=== PATIENT | female | born 1985 | race Caucasian/White ===

== ENCOUNTER → 2017-12-21 16:27 | Outpatient (CLI) | payer OTHER, SELFPAY ==
[2017-12-21 19:05] LABS: Chlamydia Trachomatis by PCR Negative (Negative); Neisserai gonorrhoeae by PCR Negative (Negative); Probe Check PASS; Sample Adequacy Control PASS; Specimen Processing Control PASS
== END ==
PROVIDERS: Visit Provider Obstetrics & Gynecology
DX: Z34.81 Encounter for supervision of other normal pregnancy, first trimester (principal); Z11.3 Encounter for screening for infections with a predominantly sexual mode of transmission
CPT/HCPCS: 87491; 87591

== ENCOUNTER → 2018-01-04 16:28 | Outpatient (CLI) | payer OTHER, SELFPAY ==
[2018-01-04 17:38] LABS: Color, Urine Yellow (Yellow); Glucose, Dipstick Normal (Normal); Ketone-Dipstick 5 mg/dl (Negative); Leukocyte Esterase-Dipstick 500 /ul (Negative); Nitrite-Dipstick Negative (Negative); Occult Blood-Urine 10 /ul (Negative); Protein-Dipstick 15 mg/dl (Negative); Specific Gravity, Urine 1.025 (1.002-1.030); Urine Bilirubin Dipstick Negative (Negative); Urine Clarity Cloudy (Clear); Urine Urobilinogen 1 mg/dl (Normal)
[2018-01-04 17:39] LABS: Absolute Lymphocyte Count 1.95 X10^3/ul (0.83-4.51); Absolute Neutrophil Count 8.8 X10^3/uL (2.0-7.7); Basophil# 0.01 X10^3/uL; Basophil% 0.1 % (0-1); Eosinophil# 0.04 X10^3/uL; Eosinophils% 0.4 % (0-5); Hematocrit 36.8 % (37-47); Hemoglobin 12.1 g/dl (12.0-15.0); Lymphocyte # 1.95 X10^3/ul (4.0); Lymphocyte % 17.2 % (19-41); Mean Corp Hgb Conc 32.9 g/gl (32-36); Mean Corpuscular Hgb 28.1 pg (27.0-32.0); Mean Corpuscular Volume 85.6 fL (81-99); Monocyte# 0.57 X10^3/uL; Neutrophil # 8.76 X10^3/uL (2.7-7.7); Neutrophil % 77.2 % (47-70); Platelet Count 300 K/mm3 (150-450); RBC Distribution Width CV 13.5 % (11.6-14.6); RBC Distribution Width SD 42.1 fl (35.1-43.9); White Blood Count 11.3 K/mm3 (4.4-11.0)
[2018-01-04 17:40] LABS: POSITIVE COUNT NO; POSITIVE DIFFERENTIAL NO; POSITIVE MORPHOLOGY NO
[2018-01-04 18:10] LABS: Thyroid Stim Hormone (TSH) 2.08 uIU/mL (0.358-3.74)
[2018-01-05 10:06] LABS: HIV - WCH Non-Reactive (Nonreactive); Rubella IgG 146.2 IU/mL
[2018-01-06 09:50] LABS: HEPATITIS B SURFACE AG Negative (Negative); Hep C Antibodies 0.1 s/co ratio (0.0-0.9)
[2018-01-07 03:11] LABS: Prenatal RPR NONREACTIVE (NONREACTIVE)
== END ==
PROVIDERS: Visit Provider Obstetrics & Gynecology
DX: Z34.81 Encounter for supervision of other normal pregnancy, first trimester (principal)
CPT/HCPCS: 36415; 81002; 84443; 85025; 86703; 86762; 86803; 87340

== ENCOUNTER → 2018-05-16 16:20 | Outpatient (CLI) | payer OTHER, SELFPAY ==
[2018-05-16 17:28] LABS: Hematocrit 27.7 % (37-47); Hemoglobin 9.1 g/dl (12.0-15.0); Mean Corp Hgb Conc 32.9 g/gl (32-36); Mean Corpuscular Hgb 28.9 pg (27.0-32.0); Mean Corpuscular Volume 87.9 fL (81-99); Mean Platelet Vol. 9.5 fl (6.2-12.0); Platelet Count 294 K/mm3 (150-450); RBC Distribution Width CV 13.1 % (11.6-14.6); RBC Distribution Width SD 40.8 fl (35.1-43.9); Red Blood Count 3.15 M/mm3 (4.2-5.4); White Blood Count 11.9 K/mm3 (4.4-11.0)
[2018-05-16 17:30] LABS: Scan Indicated on CBC? Y/N NO
[2018-05-16 17:39] LABS: Glucose Challenge Gest 1H 50g 152 mg/dL (70-140)
== END ==
PROVIDERS: Visit Provider Obstetrics & Gynecology
DX: Z34.82 Encounter for supervision of other normal pregnancy, second trimester (principal)
CPT/HCPCS: 36415; 82950; 85027; 86850

== ENCOUNTER → 2018-05-23 09:59 | Outpatient (CLI) | payer OTHER, SELFPAY ==
[2018-05-23 10:57] LABS: Glucose GTT-Gestation. Fasting 91 mg/dL (<105)
[2018-05-23 12:29] LABS: Glucose GTT-Gestational 1 Hr 162 mg/dL (<190)
[2018-05-23 12:56] LABS: Glucose GTT-Gestational 2 Hr 140 mg/dL (<165)
[2018-05-23 13:46] LABS: Glucose GTT-Gestational 3 Hr 127 L (<145)
== END ==
PROVIDERS: Family Provider Family Medicine; PCP Family Medicine; Referring Provider Obstetrics & Gynecology; Visit Provider Obstetrics & Gynecology
DX: O24.912 Unspecified diabetes mellitus in pregnancy, second trimester (principal); Z3A.00 Weeks of gestation of pregnancy not specified
CPT/HCPCS: 82951; 82952

== ENCOUNTER → 2018-06-06 16:56 | Outpatient (CLI) | payer OTHER, SELFPAY | LOC: LABSPEC 16:58 | PROVIDERS: Visit Provider Obstetrics & Gynecology | DX: O12.13 Gestational proteinuria, third trimester (principal); Z3A.00 Weeks of gestation of pregnancy not specified | CPT/HCPCS: 87086; 87088 ==

== ENCOUNTER → 2018-06-13 16:22 | Outpatient (CLI) | payer OTHER, SELFPAY ==
[2018-06-13 17:35] LABS: Prothrombin Time (Protime)PT. 13.5 SECONDS (11.7-14.9)
[2018-06-13 17:36] LABS: Mean Corp Hgb Conc 32.1 g/gl (32-36); Mean Corpuscular Hgb 27.5 pg (27.0-32.0); Mean Corpuscular Volume 85.6 fL (81-99); Mean Platelet Vol. 9.4 fl (6.2-12.0); Partial Thromboplast Time 25.8 Seconds (24.1-36.2); Platelet Count 309 K/mm3 (150-450); RBC Distribution Width CV 14.5 % (11.6-14.6); RBC Distribution Width SD 43.8 fl (35.1-43.9); Red Blood Count 3.27 M/mm3 (4.2-5.4); White Blood Count 11.4 K/mm3 (4.4-11.0)
[2018-06-13 17:40] LABS: Scan Indicated on CBC? Y/N NO
[2018-06-13 18:30] LABS: AST(SGOT) 17 U/L (15-37); Alanine Aminotransfer ALT/SGPT 17 U/L (13-56); Creatinine, Serum 0.58 mg/dL (0.55-1.02); EST Glomerular Filtration Rate 127 mL/min (>60); Est Glom Filt Rate - Afr Amer 154 mL/min (>60); Uric Acid 3.1 mg/dL (2.6-6.0)
== END ==
LOC: WOBLAB 16:26
PROVIDERS: Visit Provider Obstetrics & Gynecology
DX: O12.13 Gestational proteinuria, third trimester (principal); Z3A.00 Weeks of gestation of pregnancy not specified
CPT/HCPCS: 36415; 82565; 84450; 84460; 84550; 85027; 85610; 85730

== ENCOUNTER → 2018-06-14 16:31 | Outpatient (CLI) | payer OTHER, SELFPAY ==
[2018-06-14 18:53] LABS: 24 Hour Urine Protein 355.2 mg/24HR (<150 MG/24HR); 24HR. UA Prot. Total Volume 1600 mL; Urine Protein (24 Hour) 22.2 mg/dL (<11.9)
== END ==
PROVIDERS: Visit Provider Obstetrics & Gynecology
DX: O12.13 Gestational proteinuria, third trimester (principal); Z3A.00 Weeks of gestation of pregnancy not specified
CPT/HCPCS: 81050; 84156

== ENCOUNTER → 2018-07-18 16:15 | Outpatient (CLI) | payer OTHER, SELFPAY ==
--- OUTSIDE RECORDS SUMMARY | 2018-08-30 15:44 | XMS RPT_ITS ---
:1985 Author Organization OHIP Support Name Relationship Address Phone LESLIJOHN Unavailable [address] + [place] [address] ORRCISCH Unavailable [address] + [place] [address] JOHN BALLESTEROS Unavailable [address] + [place] [address] ORRCISCH Unavailable [address] + [place] [address] JOHN BALLESTEROS Unavailable [address] + [place] [address] ORRCISCH Unavailable [address] + [place] [address] JOHN BALLESTEROS Unavailable [address] + [place] [address] ORRCISCH Unavailable [address] + [place] [address] JOHN BALLESTEROS Unavailable [address] + [place] [address] ORRCISCH Unavailable [address] + [place] [address] JOHN BALLESTEROS Unavailable [address] + [place] [address] ORRCISCH Unavailable [address] + [place] [address] JOHN BALLESTEROS Unavailable [address] + [place] [address] ORRCISCH Unavailable [address] + [place] [address] JOHN BALLESTEROS Unavailable [address] + [place] [address] ORRCISCH Unavailable [address] + [place] [address] JOHN BALLESTEROS Unavailable [address] + [place] [address] ORRCISCH Unavailable [address] + [place] [address] JOHN BALLESTEROS Unavailable [address] + [place] [address] ORRCISCH Unavailable [address] + [place] [address] JOHN BALLESTEROS Unavailable [address] + [place] [address] ORRCISCH Unavailable [address] + [place] [address] JOHN BALLESTEROS Unavailable [address] + [place] [address] ORRCISCH Unavailable [address] + [place] [address] JOHN BALLESTEROS Unavailable [address] + [place] [address] ORRCISCH Unavailable [address] + [place] [address] Care Team Providers Name Role Phone Janee Farley Attending Unavailable Brenda Rachel Attending Unavailable MichaelsBrenda Referring Unavailable Ulises Dale Primary Care Unavailable Beneshantells, Brenda Attending Unavailable Wilson, Brenda Attending Unavailable Janee Farley Attending Unavailable Brenda Rachel Attending Unavailable Ulises Dale Primary Care Unavailable Finessekos, Brenda Attending Unavailable Finessekos, Brenda Referring Unavailable Chito Ulises Primary Care Unavailable Benekos, Brenda Attending Unavailable Benekos, Brenda Attending Unavailable Benekos, Brenda Attending Unavailable Finessekos, Brenda Attending Unavailable Michaels, Brenda Admitting Unavailable Michaels, Brenda Attending Unavailable Brenda Rachel Referring Unavailable Primay Care Physicia, No Primary Care Unavailable Pipo Sofia Attending Unavailable Pipo Sofia Referring Unavailable Primay Care Physicia, No Primary Care Unavailable Pipo Sofia Admitting Unavailable PROBLEMS PROBLEMS DATE TYPE CONDITION / CODE ATTENDING STATUS SOURCE 07/18/2018 Unknown Z36.85 - Encounter Brenda Rachel Active [place] for [facility] screening for Hospital Streptococcus B / Repository Z36.85(ICD-10) 06/14/2018 Unknown Z34.83 - Encounter Brenda Rachel Active [facility] for supervision of Community other normal Hospital , third Repository trimester / Z34.83(ICD-10) 06/14/2018 Unknown R80.9 - Brenda Rachel Active [place] Proteinuria, Community unspecified / Hospital R80.9(ICD-10) Repository 05/16/2018 Unknown Z34.82 - Encounter Miguelito Active [place] for supervision of [facility] Community other normal Hospital , second Repository trimester / Z34.82(ICD-10) 01/04/2018 Unknown Z34.81 - Encounter Brenda Rachel Active [facility] for supervision of Community other normal Hospital , first Repository trimester / Z34.81(ICD-10) 12/21/2017 Unknown Z11.3 - Encounter Brenda Rachel Active [place] for screening for Community infections with a Hospital predominantly Repository sexual mode of transmission / Z11.3(ICD-10) 09/15/2017 Unknown Z12.4 - Encounter Brenda Rachel Active [facility] for screening for Community malignant neoplasm Hospital of cervix / Repository Z12.4(ICD-10) 09/02/2017 Unknown N91.2 - Amenorrhea, Miguelito Active [place] unspecified / Summer Community N91.2(ICD-10) Hospital Repository PROCEDURES PROCEDURES No Procedure Records FoundRESULTS RESULTS RH NEGATIVE MOM Collected: 07/31/2018 Status: F Source: [facility] WORK[facility] 3:52 AM [facility] REPOSITORY Order Comment: Order Date: 07/31/18 Baby's Full Name Baby Girl Lesli Baby's Bracelet # [id number] Baby's MR # [id number] TYPE CODE TESTS RESULT OUT OF RANGE REFERENCE UNITS LAB B101.0425 A Normal MOM'S ABO NEGATIVE RH LAB B101.0450 Normal MOM'S ABS NEGATIVE LAB B101.0500 NEGATIVE Normal NEGATIVE SCREEN LAB B101.0950 A Normal BABY'S POSITIVE ABO RH LAB B101.1000 NEGATIVE Normal BABY'S NEGATIVE CHARLES Performed By: #### B101.0300 #### [facility] [address] [place], [address] RHOGAM Collected: 07/31/2018 Status: F Source: [facility] 12:00 AM [facility] REPOSITORY TYPE CODE TESTS RESULT OUT OF REFERENCE UNITS RANGE LAB U100.2500 [id number] TRANSFUSED PRODUCT: Rho(D) Immune Globulin RhoGam COUNT: 1 Performed By: #### U100.2500 #### Non-[facility] - refer to report for specific site DISCHARGE INSTRUCTION Observed: 07/30/2018 Status: F Source: [place] 9:23 PM [facility] REPOSITORY [facility] Medical Records Department [address] [place] [address] Instructions for Home/Discharge Instructions 07/30/182122 MR#: [id number] Acct: [id number] Name: BIBIANA BALLESTEROS Rep #: [id number] : 1985 33 From: Pipo Sofia MD PCP: Care Physician, No Primary Status: ADM IN Discharge Diet: No Restrictions Discharge Activity: May Shower, May Take a Tub Bath May resume sexual activity in: 4-6 weeks Additional Activity Instructions:: Nothing in the vagina for 4-6 weeks. You may return to work/school in 6 weeks. Call your doctor if you observe: Fever of 101 or Higher, Inability to urinate, Inability to have a bowel movement, Using more than one pad per hour Additional Instructions: If you experience any of the following, contact your healthcare provider. * Bleeding that soaks a pad every hour for 2 hours * Fever 100.4 or higher * Unrelieved incision or abdominal pain * Swelling, redness, discharge or bleeding from your incision or episiotomy site * Your incision begins to separate * Problems urinating (including inability to urinate or burning while urinating). * Visual changes * Severe headache * Flu-like symptoms * Pain or redness in one of both of your breasts * Pain, warmth, tenderness or swelling in your legs, especially the calf area * Frequent nausea and vomiting * Symptoms of depression or anxiety If you experience any of the following, call 911 or go to the nearest Emergency Room. * Chest pain * Problems breathing * Seizure activity * Partial or complete paralysis of a body part, slurred speech, weakness or drooping of the face, or a sudden inability to walk or hold your balance Allergies/Adverse Reactions: Allergies Penicillins Allergy (Verified 07/30/18 11:40) Hives Medications to take at Discharge Ferrous Sulfate 325 mg PO DAILY 07/30/18 Vits [Prenatabs FA] 1 tablet PO DAILY 07/30/18 Please Follow Up With: Brenda Rachel MD - [phone] When: Call to make an appointment with your doctor in 6 weeks. Primary Care Physician: Care Physician,No Primary [Primary Care Provider] - Test Results: Test results from this visit will be discussed in further detail at your follow-up appointment, if applicable. 07/30/182122 <Electronically signed by Pipo Sofia MD> Date Pipo Sofia MD CC: No Primary Care Physician OPERATIVE REPORT Observed: 07/30/2018 Status: F Source: [facility] 9:22 PM [facility] REPOSITORY [facility] Medical Records Department [address] [place] [address] Operative Report 07/30/182118 MR#: [id number] Acct: [id number] Name: BIBIANA BALLESTEROS Rep #: [id number] : 1985 33 From: Pipo Sofia MD PCP: Care Physician, No Primary Status: ADM IN Location: [place] [id number] Vaginal Delivery Maternal Presentation: Active Labor, Spontaneous Rupture of Membranes Amniotic Membrane Rupture Type: Spontaneous at home Amniotic Fluid Description: Clear Final LOLY: 08/09/18 Final LOLY Source: US <20 weeks Gestational age: 38 Weeks and 4 Days Date of Procedure: 07/30/18 Pre-Operative Diagnosis: IUP Post-Operative Diagnosis: IUP Surgery/ Procedure Performed: Spontaneous Vaginal Delivery Type of Anesthesia: Epidural Description of Procedure: Spontaneous vaginal delivery of a viable female infant with Apgars of 8/9 from an occiput anterior presentation with clear amniotic fluid and normal three-vessel placenta with a true knot in the cord. No episiotomy. Third-degree midline laceration repaired in layers with 3-0 Rapide and 3-0 Vicryl under epidural anesthesia. Sponge counts okay. Delivery physician: Pipo Sofia MD. Presentation: Vertex Placental Delivery Description: Spontaneous Placenta Disposition: [facility] Cord Vessel Description: 3 Vessels Cord Gases drawn per routine: ABG Cord Entanglement: None, True Knot(s) - x 1 Estimated Blood Loss: 250 cc A gender: Female (1 minute): 8 (5 minute): 9 Episiotomy Description: None Laceration: Midline, Perineal Extension/lac, 3rd degree Medications given after delivery: IV Pitocin Complications: None 07/30/182121 <Electronically signed by Pipo Sofia MD> Date Pipo Sofia MD CC: No Primary Care Physician; Pipo Sofia MD Signed CBC-COMPLETE BLOOD CNT Collected: 07/30/2018 Status: F Source: [place] NO DIFF 12:40 PM [facility] REPOSITORY TYPE CODE TESTS RESULT OUT OF RANGE REFERENCE UNITS LAB L100.1000 4.4-11.0 K/mm3 Normal WBC 10.6 LAB L100.1200 4.2-5.4 M/mm3 Low RBC 3.56 LAB L100.1300 12.0-15.0 g/dl Low HGB 8.8 LAB L100.1400 37-47 % Low HCT 28.6 LAB L100.1500 81-99 fL Low MCV 80.3 LAB L100.1600 27.0-32.0 pg Low MCH 24.7 LAB L100.1700 32-36 g/gl Low MCHC 30.8 LAB L100.1810 11.6-14.6 % High RDW CV 16.2 LAB L100.1820 35.1-43.9 fl High RDW SD 47.8 LAB L100.1900 150-450 K/mm3 Normal PLT 255 LAB L100.2000 6.2-12.0 fl Normal MPV 9.8 Performed By: #### L100.0500 #### [facility] [address] [place], [place], [id number] TYPE AND SCREEN Collected: 07/30/2018 Status: F Source: [facility] 12:40 PM [facility] REPOSITORY Order Comment: Reason for Type AND Screen/Red Cells: ROUTINE TYPE CODE TESTS RESULT OUT OF RANGE REFERENCE UNITS LAB B10.0800 A Normal BLOOD TYPE GEL NEGATIVE LAB B100.4000 Normal Antibody NEGATIVE Screen Performed By: #### B101.7450 #### [facility] [address] [place], [address] (ROM) RUPTURE OF Collected: 07/30/2018 Status: F Source: [facility] [place] 11:40 AM [facility] REPOSITORY TYPE CODE TESTS RESULT OUT OF REFERENCE UNITS RANGE LAB L205.1310 Negative High ROM POSITIVE Result Comment: Amniotic fluid present indicates rupture of Membranes. RESULTS CALLED TO [facility] 07/30/18 Javid Andrews. REPORT READ BACK BY SAME . Performed By: #### L205.1000 #### [facility] [address] [place], [address] Observed: 07/18/2018 Status: F Source: [place] CULTURE, GROUP B 3:30 PM [facility] STREPTOC[facility]CCUS REPOSITORY Comments: VAGINAL/RECTAL ISSA Culture ORGANISM 1: Streptococcus agalactiae (B) Amount Growth Growth Streptococcus agalactiae (B): REACTION Ampicillin $ <=0.25 S Clindamycin $$ >=1 R Inducable Clindamycin Resistan - Linezolid $$$$ <=2 S Vancomycin $ 0.5 S (NF) indicates non-formulary drug at [facility]. Approval by Infectious Disease Specialist required before non-formulary drugs may be ordered and/or dispensed. * CLSI guidelines does not recommend testing of cephalosporins. This interpretation is deduced from Beta-lactam/penicillin results. Performed By: #### M100.1800 #### [facility] [address] [place], [address] PROTEIN, URINE 24HR Collected: 06/14/2018 Status: F Source: [place] 3:45 PM [facility] REPOSITORY TYPE CODE TESTS RESULT OUT OF RANGE REFERENCE UNITS LAB L501.1850 24.0 HOURS Normal UR COLLECT 24.0 TIME LAB L501.1875 mL Normal UR TOTAL 1600 VOLUME LAB L501.1900 <11.9 mg/dL High URINE PROTEIN 22.2 LAB L501.1925 <150 MG/24HR mg/24HR High 24hr UR 355.2 PROTEIN Performed By: #### L500.9000 #### [facility] [address] [place], [address] CBC-COMPLETE BLOOD CNT Collected: 06/13/2018 Status: F Source: [place] NO DIFF 4:35 PM [facility] REPOSITORY TYPE CODE TESTS RESULT OUT OF RANGE REFERENCE UNITS LAB L100.1000 4.4-11.0 K/mm3 High WBC 11.4 LAB L100.1200 4.2-5.4 M/mm3 Low RBC 3.27 LAB L100.1300 12.0-15.0 g/dl Low HGB 9.0 LAB L100.1400 37-47 % Low HCT 28.0 LAB L100.1500 81-99 fL Normal MCV 85.6 LAB L100.1600 27.0-32.0 pg Normal MCH 27.5 LAB L100.1700 32-36 g/gl Normal MCHC 32.1 LAB L100.1810 11.6-14.6 % Normal RDW CV 14.5 LAB L100.1820 35.1-43.9 fl Normal RDW SD 43.8 LAB L100.1900 150-450 K/mm3 Normal PLT 309 LAB L100.2000 6.2-12.0 fl Normal MPV 9.4 Performed By: #### L100.0500 #### [facility] [address] [facility] [place], [place], [id number] PROTHROMBIN TIME W/INR Collected: 06/13/2018 Status: F Source: [place] 4:35 PM [facility] REPOSITORY TYPE CODE TESTS RESULT OUT OF RANGE REFERENCE UNITS LAB L300.4150 11.7-14.9 SECONDS Normal PROTIME 13.5 LAB L300.4200 Normal INR 1.0 Performed By: #### L300.3900, L300.4310 #### [facility] [address] [facility] [place], [place], [id number] PARTIAL THROMBOPLAST Collected: 06/13/2018 Status: F Source: [place] TIME 4:35 PM [facility] REPOSITORY TYPE CODE TESTS RESULT OUT OF RANGE REFERENCE UNITS LAB L300.4310 24.1-36.2 Seconds Normal PTT 25.8 Performed By: #### L300.3900, L300.4310 #### [facility] [address] [place], [address] SERUM CREATININE AND Collected: 06/13/2018 Status: F Source: [place] GFR 4:35 PM [facility] REPOSITORY TYPE CODE TESTS RESULT OUT OF RANGE REFERENCE UNITS LAB L501.1100 0.55-1.02 mg/dL Normal 0.58 CREAT,SERUM Result Comment: The validity of the calculated GFR AND GFRAA in patients over 70 years has not been determined. Clinical correlation is essential. LAB L501.1110 >60 mL/min Normal EST GFR 127 Result Comment: Non- GFR Calc LAB L501.1115 >60 mL/min Normal EST GFR - AA 154 Result Comment: GFR Calc Performed By: #### L501.1105, L501.1400, L501.4100, L501.4405 #### [facility] [address] [place], [address] URIC ACID Collected: 06/13/2018 Status: F Source: [place] 4:35 PM [facility] REPOSITORY TYPE CODE TESTS RESULT OUT OF RANGE REFERENCE UNITS LAB L501.1400 2.6-6.0 mg/dL Normal URIC 3.1 Result Comment: The drugs N-Acetylcysteine and Metamizole may falsely depress this assay. Performed By: #### L501.1105, L501.1400, L501.4100, L501.4405 #### [facility] [address] [place], [address] AST(SGOT) Collected: 06/13/2018 Status: F Source: [place] 4:35 PM [facility] REPOSITORY TYPE CODE TESTS RESULT OUT OF RANGE REFERENCE UNITS LAB L501.4100 15-37 U/L Normal AST 17 Performed By: #### L501.1105, L501.1400, L501.4100, L501.4405 #### [facility] [address] [place], [address] ALANINE AMINOTRANSFERAS Collected: 06/13/2018 Status: F Source: [place] (SGPT) 4:35 PM [facility] REPOSITORY TYPE CODE TESTS RESULT OUT OF RANGE REFERENCE UNITS LAB L501.4405 13-56 U/L Normal ALT 17 Performed By: #### L501.1105, L501.1400, L501.4100, L501.4405 #### [facility] [address] [place], [address] Observed: 06/06/2018 Status: F Source: [place] CULTURE, URINE 4:30 PM [facility] REPOSITORY Urine Culture ORGANISM 1: Mixed Gram Positive Organisms Gibson Count 25,000-50,000 MIX CULTURE Mixed contaminants. Submit a new specimen if indicated. Performed By: #### M100.0650 #### [facility] [address] [facility] [place], [address] GESTATIONAL GTT 3HR Collected: 05/23/2018 Status: F Source: [facility] 100G 10:11 AM [facility] REPOSITORY Order Comment: Is Patient Fasting? Y TYPE CODE TESTS RESULT OUT OF RANGE REFERENCE UNITS LAB L501.0650 <105 mg/dL Normal GLU 91 GTT-FASTING Result Comment: GLUCOSE TOLERANCE TEST FOR Reference Interval GESTATIONAL DIABETES Fasting <105 mg/dL 1 hour <190 mg/dl 2 hour <165 mg/dl 3 hour <145 mg/dl LAB L501.0660 <190 mg/dL Normal GLU GTT- 1HR 162 LAB L501.0670 <165 mg/dL Normal GLU GTT- 2HR 140 LAB L501.0680 <145 L Normal GLU GTT- 3HR 127 Performed By: #### L500.4710 #### [facility] [address] [facility] [place], [address] CBC-COMPLETE BLOOD CNT Collected: 05/16/2018 Status: F Source: [place] NO DIFF 4:21 PM [facility] REPOSITORY TYPE CODE TESTS RESULT OUT OF RANGE REFERENCE UNITS LAB L100.1000 4.4-11.0 K/mm3 High WBC 11.9 LAB L100.1200 4.2-5.4 M/mm3 Low RBC 3.15 LAB L100.1300 12.0-15.0 g/dl Low HGB 9.1 LAB L100.1400 37-47 % Low HCT 27.7 LAB L100.1500 81-99 fL Normal MCV 87.9 LAB L100.1600 27.0-32.0 pg Normal MCH 28.9 LAB L100.1700 32-36 g/gl Normal MCHC 32.9 LAB L100.1810 11.6-14.6 % Normal RDW CV 13.1 LAB L100.1820 35.1-43.9 fl Normal RDW SD 40.8 LAB L100.1900 150-450 K/mm3 Normal PLT 294 LAB L100.2000 6.2-12.0 fl Normal MPV 9.5 Performed By: #### L100.0500 #### [facility] [address] [place], [address] GLUCOSE CHALLENGE GEST Collected: 05/16/2018 Status: F Source: [place] 1H 50G 4:21 PM [facility] REPOSITORY TYPE CODE TESTS RESULT OUT OF RANGE REFERENCE UNITS LAB L501.0250 70-140 mg/dL High GLU GEST 152 50g 1H Performed By: #### L501.0250 #### [facility] [address] [place], [address] ANTIBODY SCREEN Collected: 05/16/2018 Status: F Source: [place] 4:21 PM [facility] REPOSITORY TYPE CODE TESTS RESULT OUT OF RANGE REFERENCE UNITS LAB B100.4000 Normal Antibody NEGATIVE Screen Performed By: #### B100.4000 #### [facility] [address] [place], [address] CBC W/DIFF, AUTOMATED Collected: 01/04/2018 Status: F Source: [place] 4:31 PM [facility] REPOSITORY TYPE CODE TESTS RESULT OUT OF RANGE REFERENCE UNITS LAB L100.1000 4.4-11.0 K/mm3 High WBC 11.3 LAB L100.1200 4.2-5.4 M/mm3 Normal RBC 4.30 LAB L100.1300 12.0-15.0 g/dl Normal HGB 12.1 LAB L100.1400 37-47 % Low HCT 36.8 LAB L100.1500 81-99 fL Normal MCV 85.6 LAB L100.1600 27.0-32.0 pg Normal MCH 28.1 LAB L100.1700 32-36 g/gl Normal MCHC 32.9 LAB L100.1810 11.6-14.6 % Normal RDW CV 13.5 LAB L100.1820 35.1-43.9 fl Normal RDW SD 42.1 LAB L100.1900 150-450 K/mm3 Normal PLT 300 LAB L100.2000 6.2-12.0 fl Normal MPV 10.0 LAB L100.2100 47-70 % High NEUT% 77.2 LAB L100.2200 19-41 % Low LY% 17.2 LAB L100.2300 0-10 % Normal MONO% 5.0 LAB L100.2400 0-5 % Normal EO% 0.4 LAB L100.2500 0-1 % Normal BASO% 0.1 LAB L100.2550 0.0-0.9 % Normal IM GRAN % 0.100 Result Comment: IG% - Immature Granulocytes (promyelocytes, myelocytes and metamyelocytes) > 1% indicates that a LEFT SHIFT is Present. LAB L100.2620 2.0-7.7 X10 3/uL High Absolute Neut 8.8 LAB L100.2720 0.83-4.51 X10 3/ul Normal Absolute Lymph 1.95 Performed By: #### L100.0100 #### [facility] [address] [place] [address]. [place], [place], [address] URINALYSIS, ROUTINE Collected: 01/04/2018 Status: F Source: [place] (DIPSTICK) 4:31 PM [facility] REPOSITORY Order Comment: How was Urine Obtained? Urine, Random TYPE CODE TESTS RESULT OUT OF RANGE REFERENCE UNITS LAB L400.3000 Yellow COLOR Normal Yellow LAB L400.3050 Clear Normal CLARITY Cloudy LAB L400.3200 Normal mg/dl Normal GLUCOSE, UR Normal LAB L400.3300 Negative mg/dL Normal BILIRUBIN URINE Negative LAB L400.3400 Negative mg/dl High 5 KETONE UR LAB L400.3465 1.002-1.030 Normal SP.GR. DIPSTX 1.025 LAB L400.3550 5.0 - 8.0 pH UR Normal 6.0 LAB L400.3600 Negative mg/dl High PROT 15 DIPSTX LAB L400.3700 Normal mg/dl High 1 UROBILI LAB L400.3750 Negative Normal NITRITE UR Negative LAB L400.3780 Negative /ul High 10 OCCULT BLOOD-UR LAB L400.3800 Negative /ul High LEUK ESTERASE 500 Performed By: #### L400.2010 #### [facility] [address] [place], [place], [address] THYROID STIM HORMONE Collected: 01/04/2018 Status: F Source: [place] (TSH) 4:31 PM [facility] REPOSITORY TYPE CODE TESTS RESULT OUT OF RANGE REFERENCE UNITS LAB L501.9520 0.358-3.74 uIU/mL Normal TSH 2.08 Performed By: #### L501.9520 #### [facility] [address] [facility] [address] [place], [place], [address] T AND S-NO Collected: 01/04/2018 Status: F Source: [place] CHARGE W/PNP 4:31 PM [facility] REPOSITORY Order Comment: Reason for Type AND Screen/Red Cells: Surgery? N TYPE CODE TESTS RESULT OUT OF RANGE REFERENCE UNITS LAB B10.0800 A Normal BLOOD NEGATIVE TYPE GEL LAB B100.4050 Normal Ab SCREEN NEGATIVE GEL Performed By: #### B100.7550 #### [facility] [address] [place], [address] RUBELLA IGG Collected: 01/04/2018 Status: F Source: [facility] 4:31 PM [facility] REPOSITORY TYPE CODE TESTS RESULT OUT OF RANGE REFERENCE UNITS LAB L509.4000 IU/mL Normal Rubella IgG 146.2 Result Comment: Antibody results Interpretation of Immune Status < 5 IU/ml Presumed Non-immune 5 - < 10 IU/ml Equivocal > or = 10 IU/ml Presumed Immune Performed By: #### L509.4000, L3890.6005 #### [facility] [address] [place], [address] HIV - [facility] Collected: 01/04/2018 Status: F Source: [place] 4:31 PM [facility] REPOSITORY TYPE CODE TESTS RESULT OUT OF RANGE REFERENCE UNITS LAB L3890.6005 Nonreactive Normal HIV - [facility] Non-Reactive Performed By: #### L509.4000, L3890.6005 #### [facility] [address] [place], [address] HEPATITIS B SURFACE Collected: 01/04/2018 Status: F Source: [place] AG 4:31 PM [facility] REPOSITORY TYPE CODE TESTS RESULT OUT OF RANGE REFERENCE UNITS LAB L3100.0400 Negative Normal HB Negative SURF AG Result Comment: Performed at: - [facility] [id number] Filtration Operator: Kartik Avila PhD, Phone: [phone] Performed By: #### L3100.0390, L3100.0625 #### [facility] (refer to report for specific site) refer to report for address and phone number HEPATITIS C ANTIBODIES Collected: 01/04/2018 Status: F Source: [place] 4:31 PM [facility] REPOSITORY TYPE CODE TESTS RESULT OUT OF RANGE REFERENCE UNITS LAB L3100.0650 0.0-0.9 s/co ratio Normal HEP C AB 0.1 Result Comment: Negative: < 0.8 Indeterminate: 0.8 - 0.9 Positive: > 0.9 The CDC recommends that a positive HCV antibody result be followed up with a HCV Nucleic Acid Amplification test (996351). Performed By: #### L3100.0390, L3100.0625 #### [facility] (refer to report for specific site) refer to report for address and phone number RPR Collected: 01/04/2018 Status: F Source: [place] 4:31 PM [facility] REPOSITORY TYPE CODE TESTS RESULT OUT OF REFERENCE UNITS RANGE LAB L700.5100 NONREACTIVE Normal RPR NONREACTIVE Performed By: #### L700.5100 #### [facility] [address] [place], [place], [id number] CT/NG [facility] BY PCR Collected: 12/21/2017 Status: F Source: [place] 2:15 PM [facility] REPOSITORY TYPE CODE TESTS RESULT OUT OF RANGE REFERENCE UNITS LAB L8200.2100 Negative Normal Chlam Negative Trac PCR LAB L8200.2200 Negative Normal NG by Negative PCR Performed By: #### L8200.2000 #### [facility] [address] [place], [address] PAP I-G W/RFX HRHPV Collected: 09/15/2017 Status: F Source: [place] 1:20 PM [facility] REPOSITORY Order Comment: CYTOLOGY INFORMATION: - CLINICAL INFORMATION: - DATE LMP/MENOPAUSE: 09/05/17 LMP - COLLECTION VIAL: Thin Prep Vial - SUPERVISOR RUBBER COVERING SOURCE: CERVICAL/ENDOCERVICAL - COLLECTION TECHNIQUE: BRUSH/SPATULA Specimen Comment: [id number] Specimen Comment: No. of containers..01 ThinPrep Vial TYPE CODE TESTS RESULT OUT OF RANGE REFERENCE UNITS LAB L7400.0800 . Normal DIAGN Comment Result Comment: NEGATIVE FOR INTRAEPITHELIAL LESION AND MALIGNANCY. LAB L7400.0900 . Normal ADEQ Comment Result Comment: Satisfactory for evaluation. Endocervical and/or squamous metaplastic cells (endocervical component) are present. Scant cellularity LAB L7400.1400 . Normal PERFORM Comment Result Comment: Carlene Angel, Student Loan Counselor (ASCP) LAB L7400.1500 . Normal QC Comment REV Result Comment: Nena Jj, Supervisory Student Loan Counselor (ASCP) LAB L7400.2575 . Normal TEST METHOD Comment Result Comment: This liquid based ThinPrep(R) pap test was screened with the use of an image guided system. LAB L7400.2600 . Normal . COMM LAB L7400.2700 . Normal PAPSMR Comment Result Comment: The Pap smear is a screening test designed to aid in the detection of premalignant and malignant conditions of the uterine cervix. It is not a diagnostic procedure and should not be used as the sole means of detecting cervical cancer. Both false-positive and false-negative reports do occur. LAB L7400.2800 . Normal HPV RFLX Comment Result Comment: The HPV DNA reflex criteria were not met with this specimen result therefore, no HPV testing was performed. Performed at: [facility] [id number] Filtration Operator: Ly Bernal MD, Phone: [phone] Performed By: #### L7400.0350 #### [facility] (refer to report for specific site) refer to report for address and phone number HCG TITER QUANT., Collected: 09/02/2017 Status: F Source: [place] SERUM 4:07 PM [facility] REPOSITORY TYPE CODE TESTS RESULT OUT OF RANGE REFERENCE UNITS LAB L700.8000 <9 non-preg mIU/mL Normal HCG < 1 QUANT. Performed By: #### L700.8000 #### [facility] [address] [place], [address] ALLERGIES ALLERGIES DATE TYPE / CODE NAME / CODE REACTION SEVERITY SOURCE 07/30/2018 Drug Penicillins/ Hives Unknown [facility] Allergy/4160 [id number]( Hospital [address](SNOMED XNORM) Repository CT) ENCOUNTERS ENCOUNTERS ADMIT/DISCHARGE ACCOUNT ADMITTING ENCOUNTER LOCATION SOURCE NUMBER CLASS 08/09/2018 [id number] MichaelflorianSiddharth [place] [facility] ing:WP Repository 07/30/2018/ [id number] Pipo Sofia Inpatient [place] 8 8 Encounter [facility] ing:WPRoom: Repository [id number]: 1 07/18/2018 [id number] Ambulatory [place] 4 [facility] ing:LABSPEC Repository 06/14/2018 [id number] Ambulatory [place] 4 [facility] ing:LABSPEC Repository 06/13/2018 [id number] Ambulatory [place] 2 [facility] ing:WOBLAB Repository 06/06/2018 [id number] Ambulatory [place] 6 [facility] ing:LABSPEC Repository 05/23/2018 [id number] Ambulatory [place] 2 [facility] ing:LAB Repository 05/20/2018 [id number] Ambulatory [place] 3 [facility] ing:LAB.FUTUR Repository E 05/16/2018 [id number] Ambulatory [place] 0 [facility] ing:WOBLAB Repository 01/04/2018 [id number] Ambulatory [place] 3 [facility] ing:WOBLAB Repository 12/21/2017 [id number] Ambulatory [place] 5 [facility] ing:LABSPEC Repository 09/15/2017 [id number] Ambulatory [place] 9 [facility] ing:LABSPEC Repository 09/02/2017 [id number] Ambulatory [place] 5 [facility] ing:WOBLAB Repository PAYERS PAYERS ENCOUNTER GUARANTOR PAYER SUBSCRIBER SOURCE 08/09/2018 BIBIANA L Primary BIBIANA L [place] [id number] Insurance:AULTCAREPol KETLERDOB: [facility] icy Number: [id number] [id number] Repository [place] Date:8329-08-92[address] [address]Vse: [phone] 2349[place], [place] [phone] () [address]OQ: 08/09/2018 Secondary NOT GIVENUNK [place] Insurance:SELF PAY [facility] Number: Effective Repository Date:2018-07-28 07/30/2018 BIBIANA L Primary BIBIANA L [place] [id number] Insurance:AULTCAREPol KETLERDOB: [facility] icy Number: [id number] [facility] [id number] Repository [place] Date:6071-04-05CF [address] [address]Jgp: [phone], [place] [phone] () [address]AK: 07/30/2018 Secondary NOT GIVENUNK [place] Insurance:SELF PAY [facility] Number: Effective Repository Date:2018-07-30 07/18/2018 BIBIANA L Primary BIBIANA L [place] [id number] Insurance:AULTCAREPol KETLERDOB: [facility] icy Number: [id number] Hospital [facility] [id number] Repository [place] Date:4402-50-90[address] [address]Hxj: [phone] 6677CYGCarlsbad, [place] [phone] () [phone]: 07/18/2018 Secondary NOT GIVENUNK [place] Insurance:SELF PAY [facility] Number: Effective Repository Date:2018-07-18 06/14/2018 BIBIANA L Primary BIBIANA L [place] [id number] Insurance:AULTCAREPol KETLERDOB: [facility] icy Number: [id number] [facility] [id number] Repository [place] Date:5933-92-29[address] [address]Qdm: [phone], [place] [phone] (HP) [phone]: 06/14/2018 Secondary NOT GIVENUNK [place] Insurance:SELF PAY [facility] Number: Effective Repository Date:2018-06-14 06/13/2018 BIBIANA L Primary BIBIANA L [place] [id number] Insurance:AULTCAREPol KETLERDOB: [facility] icy Number: [id number] [facility] [id number] Repository [place] Date:7605-41-28HV [address] [address]Rmx: [phone], [place] [phone] (HP) [address]HH: 06/13/2018 Secondary NOT GIVENUNK [place] Insurance:SELF PAY [facility] Number: Effective Repository Date:2018-06-13 06/06/2018 BIBIANA L Primary BIBIANA L [place] [id number] Insurance:AULTCAREPol KETLERDOB: [facility] ic Number: [id number] Hospital of [facility] [id number] Repository [place] Date:7850-01-24PS [address] [address]Brf: [phone], [place] [phone] (HP) [address]VY: 06/06/2018 Secondary NOT GIVENUNK [place] Insurance:SELF PAY [facility] Number: Effective Repository Date:2018-06-06 05/23/2018 BIBIANA L Primary BIBIANA L [place] [id number] Insurance:AULTCAREPol KETLERDOB: [facility] icy Number: [id number] Hospital of [facility] [id number] Repository [place] Date:5970-04-47AJ [address] [address]Cgt: [phone], [place] [phone] (HP) [phone]: 05/23/2018 Secondary NOT GIVENUNK [place] Insurance:SELF PAY [facility] Effective Repository Date:2018-05-19 05/20/2018 Bibiana [id number] Primary Bibiana KetlerDOB: [place] [address] Insurance:AULTCAREPol [id number] [facility] icy Number: [place], [place] [id number] Repository [address]Nqf: [phone]) Date:0670-95-24YR [phone] () [address], [place] [address]FH: 05/20/2018 Secondary NOT GIVENUNK [place] Insurance:SELF PAY [facility] Number: Effective Repository Date:2018-05-20 05/16/2018 Bibianaryan [id number] Primary Bibiana KetlerDOB: [place] [address] Insurance:AULTCAREPol [id number] [facility] icy Number: [place], [place] [id number] Repository [address]Jyi: (330) Date:4160-67-84VZ [phone] () [address] [address]IF: 05/16/2018 Secondary NOT GIVENUNK [place] Insurance:SELF PAY [facility] Number: Effective Repository Date:2018-05-16 01/04/2018 Bibiana [id number] Primary Bibiana KetlerDOB: [place] [address] Insurance:AULTCAREPol [id number] [facility] icy Number: [place], [place] [id number] Repository [address]Wdr: (330) Date:7186-07-73DU [phone] () [address], [place] [address]ZS: 01/04/2018 Secondary NOT GIVENUNK [place] Insurance:SELF PAY [facility] Number: Effective Repository Date:2018-01-04 12/21/2017 Bibiana [id number] Primary Bibiana KetlerDOB: [place] [address] Insurance:AULTCAREPol [id number] [facility] icy Number: [place], [place] [id number] Repository [address]Rji: (330) Date:1440-26-47YE [phone] (HP) [address], [place] [address]UW: 12/21/2017 Secondary NOT GIVENUNK [place] Insurance:SELF PAY [facility] Number: Effective Repository Date:2017-12-21 09/15/2017 Bibianaryan [id number] Primary Bibiana KetlerDOB: [place] [address] Insurance:AULTCAREPol [id number] [facility] icy Number: [place], [place] [id number] Repository [address]Ggj: ([phone]) Date:3266-19-44IV [phone] (HP) [address], [place] [address]BN: 09/15/2017 Secondary NOT GIVENUNK [place] Insurance:SELF PAY [facility] Number: Effective Repository Date:2017-09-15 09/02/2017 Bibianaryan [id number] Primary Bibiana KetlerDOB: [place] [address] Insurance:AULTCAREPol [id number] [facility] icy Number: [place], [place] [id number] Repository [address]Msy: ([phone]) Date:9019-43-45QS [phone] (HP) [address], [place] [address]LP: 09/02/2017 Secondary NOT GIVENUNK [place] Insurance:SELF PAY [facility] Number: Effective Repository Date:2017-09-02
== END ==
PROVIDERS: Visit Provider Obstetrics & Gynecology
DX: Z36.85 Encounter for antenatal screening for Streptococcus B (principal)
CPT/HCPCS: 87077; 87081; 87186

== ENCOUNTER 2018-07-30 12:02 | Inpatient (IN) | payer OTHER, SELFPAY ==
[2018-07-30 11:38] VITALS: BMI 32.6
[2018-07-30 11:56] LABS: ROM Internal Control Test YES-OK TO RESULT pt. (Internal QC)
[2018-07-30 11:57] LABS: ROM Patient Test POSITIVE (Negative)
[2018-07-30] MEDS: Lactated Ringers 1,000 ML 50 ML IV ×2 (12:40→18:00)
[2018-07-30] MEDS: Vancomycin IV 1,000 MG/200 ML BAG 200 MG IV (12:46)
[2018-07-30 12:54] LABS: Hematocrit 28.6 % (37-47); Hemoglobin 8.8 g/dl (12.0-15.0); Mean Corp Hgb Conc 30.8 g/gl (32-36); Mean Corpuscular Hgb 24.7 pg (27.0-32.0); Mean Corpuscular Volume 80.3 fL (81-99); Mean Platelet Vol. 9.8 fl (6.2-12.0); Platelet Count 255 K/mm3 (150-450); RBC Distribution Width CV 16.2 % (11.6-14.6); RBC Distribution Width SD 47.8 fl (35.1-43.9); Red Blood Count 3.56 M/mm3 (4.2-5.4); White Blood Count 10.6 K/mm3 (4.4-11.0)
[2018-07-30 12:58] LABS: Scan Indicated on CBC? Y/N NO
[2018-07-30] MEDS: Oxytocin 30 units/NS 500 ml 30 UNITS/500 ML IV.SOLN IV (15:07)
[2018-07-30] MEDS: fentaNYL-bupivacaine (epidural) 100 ML BAG EPIDURAL (17:42)
[2018-07-30] MEDS: Oxytocin 30 units/NS 500 ml 30 UNITS/500 ML IV.SOLN 334 UNITS IV (21:05)
--- NOTE | 2018-07-30 21:19 | PCM.OB.VAG ---
Vaginal Delivery Maternal Presentation: Active Labor, Spontaneous Rupture of Membranes Amniotic Membrane Rupture Type: Spontaneous at home Amniotic Fluid Description: Clear Final LOLY: 08/09/18 Final LOLY Source: US <20 weeks Gestational age: 38 Weeks and 4 Days Date of Procedure: 07/30/18 Pre-Operative Diagnosis: IUP Post-Operative Diagnosis: IUP Surgery/ Procedure Performed: Spontaneous Vaginal Delivery Type of Anesthesia: Epidural Description of Procedure: Spontaneous vaginal delivery of a viable female with Apgars of 8/9 from an occiput anterior presentation with clear amniotic fluid and normal three-vessel placenta with a true knot in the cord. No episiotomy. Third-degree midline laceration repaired in layers with 3-0 Rapide and 3-0 Vicryl under epidural anesthesia. Sponge counts okay. Delivery physician: Pipo Sofia MD. Presentation: Vertex Placental Delivery Description: Spontaneous Placenta Disposition: [facility] Cord Vessel Description: 3 Vessels Cord Gases drawn per routine: ABG Cord Entanglement: None, True Knot(s) - x 1 Estimated Blood Loss: 250 cc Infant A gender: Female (1 minute): 8 (5 minute): 9 Episiotomy Description: None Laceration: Midline, Perineal Extension/lac, 3rd degree Medications given after delivery: IV Pitocin Complications: None
--- NOTE | 2018-07-30 21:22 | OP.PCM_ITS ---
Vaginal Delivery Maternal Presentation: Active Labor, Spontaneous Rupture of Membranes Amniotic Membrane Rupture Type: Spontaneous at home Amniotic Fluid Description: Clear Final LOLY: 08/09/18 Final LOLY Source: US <20 weeks Gestational age: 38 Weeks and 4 Days Date of Procedure: 07/30/18 Pre-Operative Diagnosis: IUP Post-Operative Diagnosis: IUP Surgery/ Procedure Performed: Spontaneous Vaginal Delivery Type of Anesthesia: Epidural Description of Procedure: Spontaneous vaginal delivery of a viable female with Apgars of 8/9 from an occiput anterior presentation with clear amniotic fluid and normal three- vessel placenta with a true knot in the cord. No episiotomy. Third-degree midline laceration repaired in layers with 3-0 Rapide and 3-0 Vicryl under epidural anesthesia. Sponge counts okay. Delivery physician: Pipo Sofia MD. Presentation: Vertex Placental Delivery Description: Spontaneous Placenta Disposition: [facility] Cord Vessel Description: 3 Vessels Cord Gases drawn per routine: ABG Cord Entanglement: None, True Knot(s) - x 1 Estimated Blood Loss: 250 cc A gender: Female (1 minute): 8 (5 minute): 9 Episiotomy Description: None Laceration: Midline, Perineal Extension/lac, 3rd degree Medications given after delivery: IV Pitocin Complications: None
--- NOTE | 2018-07-30 21:23 | DCINST_ITS ---
Discharge Diet: No Restrictions Discharge Activity: May Shower, May Take a Tub Bath May resume sexual activity in: 4-6 weeks Additional Activity Instructions:: Nothing in the vagina for 4-6 weeks. You may return to work/school in 6 weeks. Call your doctor if you observe: Fever of 101 or Higher, Inability to urinate, Inability to have a bowel movement, Using more than one pad per hour Additional Instructions: If you experience any of the following, contact your healthcare provider. * Bleeding that soaks a pad every hour for 2 hours * Fever 100.4 or higher * Unrelieved incision or abdominal pain * Swelling, redness, discharge or bleeding from your incision or episiotomy site * Your incision begins to separate * Problems urinating (including inability to urinate or burning while urinating). * Visual changes * Severe headache * Flu-like symptoms * Pain or redness in one of both of your breasts * Pain, warmth, tenderness or swelling in your legs, especially the calf area * Frequent nausea and vomiting * Symptoms of depression or anxiety If you experience any of the following, call 911 or go to the nearest Emergency Room. * Chest pain * Problems breathing * Seizure activity * Partial or complete paralysis of a body part, slurred speech, weakness or drooping of the face, or a sudden inability to walk or hold your balance Allergies/Adverse Reactions: Allergies Penicillins Allergy (Verified 07/30/18 11:40) Hives Medications to take at Discharge Ferrous Sulfate 325 mg PO DAILY 07/30/18 Vits [Prenatabs FA] 1 tablet PO DAILY 07/30/18 Please Follow Up With: Brenda Rachel MD - [phone] When: Call to make an appointment with your doctor in 6 weeks. Primary Care Physician: Care Physician,No Primary [Primary Care Provider] - Test Results: Test results from this visit will be discussed in further detail at your follow- up appointment, if applicable.
--- NOTE | 2018-07-30 21:23 | PCM.DCVAG ---
Discharge Diet: No Restrictions Discharge Activity: May Shower, May Take a Tub Bath May resume sexual activity in: 4-6 weeks Additional Activity Instructions:: Nothing in the vagina for 4-6 weeks. You may return to work/school in 6 weeks. Call your doctor if you observe: Fever of 101 or Higher, Inability to urinate, Inability to have a bowel movement, Using more than one pad per hour Additional Instructions: If you experience any of the following, contact your healthcare provider. Bleeding that soaks a pad every hour for 2 hours Fever 100.4 or higher Unrelieved incision or abdominal pain Swelling, redness, discharge or bleeding from your incision or episiotomy site Your incision begins to separate Problems urinating (including inability to urinate or burning while urinating). Visual changes Severe headache Flu-like symptoms Pain or redness in one of both of your breasts Pain, warmth, tenderness or swelling in your legs, especially the calf area Frequent nausea and vomiting Symptoms of depression or anxiety If you experience any of the following, call 911 or go to the nearest Emergency Room. Chest pain Problems breathing Seizure activity Partial or complete paralysis of a body part, slurred speech, weakness or drooping of the face, or a sudden inability to walk or hold your balance Allergies/Adverse Reactions: Allergies Penicillins Allergy (Verified 07/30/18 11:40) Hives Medications to take at Discharge Ferrous Sulfate 325 mg PO DAILY 07/30/18 Vits [Prenatabs FA] 1 tablet PO DAILY 07/30/18 Please Follow Up With: Brenda Rachel MD - [phone] When: Call to make an appointment with your doctor in 6 weeks. Primary Care Physician: Care Physician,No Primary [Primary Care Provider] - Test Results: Test results from this visit will be discussed in further detail at your follow-up appointment, if applicable.
[2018-07-30] MEDS: Oxytocin 30 units/NS 500 ml 30 UNITS/500 ML IV.SOLN 167 UNITS IV (21:35)
[2018-07-31] VITALS: BP 113/64; PULSE 74; RESP 14; TEMP 37.1
[2018-07-31] MEDS: Ibuprofen 600 MG Tablet PO ×3 (02:36→16:45)
[2018-07-31 03:37] VITALS: BP 108/57; PULSE 65; RESP 18; TEMP 36.1; O2SAT 95
[2018-07-31 07:51] VITALS: BP 128/77; PULSE 68; RESP 16; TEMP 36.8; O2SAT 97
--- NOTE | 2018-07-31 09:34 | PCM.PN.OB ---
Subjective: Patient without complaints. Pain well controlled. Breast-feeding going well. - Physical Exam Vital Signs Temp Pulse Resp BP Pulse Ox 98.2 F 68 16 128/77 H 97 07/31/18 07:51 07/31/18 07:51 07/31/18 07:51 07/31/18 07:51 07/31/18 07:51 Oxygen Delivery Method Room Air Weight: 184 lb 6.4 oz Body Mass Index (BMI) 32.6 Intake and Output for Last 24 Hours 07/29/18 07/30/18 07/31/18 23:59 23:59 23:59 Intake Total 2117 / 2117 Output Total 700 / 700 1100 / 1100 Balance 1417 / 1417 -1100 / -1100 Laboratory Tests Past 24 Hrs 07/30/18 07/30/18 07/30/18 11:40 12:40 12:40 WBC 10.6 RBC 3.56 L Hgb 8.8 L Hct 28.6 L MCV 80.3 L MCH 24.7 L MCHC 30.8 L RDW 16.2 H RDW Differential 47.8 H Plt Count 255 MPV 9.8 Vag Amniotic Fld Detect POSITIVE H Blood Type A NEGATIVE Antibody Screen NEGATIVE Screen Baby's Blood Type Baby's CHARLES 07/31/18 03:52 WBC RBC Hgb Hct MCV MCH MCHC RDW RDW Differential Plt Count MPV Vag Amniotic Fld Detect Blood Type Antibody Screen Screen NEGATIVE Baby's Blood Type A POSITIVE Baby's CHARLES NEGATIVE Medical Necessity - Tobacco Use Smoking Status: Never smoker Assessment/Plan Doing well day #1 status post spontaneous vaginal delivery. Continuing present care.
[2018-07-31] MEDS: Senna/Docusate Sodium 1 Tablet PO (13:40)
[2018-07-31] MEDS: Acetaminophen 500 MG Tablet 1000 MG PO (13:40)
[2018-07-31 14:17] VITALS: BP 131/60; PULSE 89; RESP 16; TEMP 36.6
[2018-07-31 16:16] VITALS: BP 112/71; PULSE 78; RESP 16; TEMP 36.6
[2018-07-31 20:30] VITALS: BP 119/71; PULSE 77; RESP 17; TEMP 36.6; O2SAT 95
[2018-08-01] MEDS: Ibuprofen 600 MG Tablet PO ×2 (00:37→07:51)
[2018-08-01 02:25] VITALS: BP 111/63; PULSE 61; RESP 16; TEMP 36.9; O2SAT 97
[2018-08-01] MEDS: Acetaminophen 500 MG Tablet 1000 MG PO (03:47)
[2018-08-01 08:00] VITALS: BP 112/69; PULSE 75; RESP 20; TEMP 36.5
--- NOTE | 2018-08-01 08:13 | PCM.PN.OB ---
Subjective: PPD#2 Doing well. Some soreness at perineum. Breast feeding and inc cramping with nursing. Denies feeling weak/dizzy with anemia. Objective: sitting up in bed, nursing baby - Physical Exam General: Alert, Oriented x3, Cooperative, No apparent distress HEENT: Atraumatic Neck: Supple Psych/Mental Status: Normal Affect Vital Signs Temp Pulse Resp BP Pulse Ox 98.4 F 61 16 111/63 97 08/01/18 02:25 08/01/18 02:25 08/01/18 02:25 08/01/18 02:25 08/01/18 02:25 Oxygen Delivery Method Room Air Weight: 83.642 kg Body Mass Index (BMI) 32.6 Intake and Output for Last 24 Hours 07/30/18 07/31/18 08/01/18 23:59 23:59 23:59 Intake Total 2117 / 2117 Output Total 700 / 700 1100 / 1100 Balance 1417 / 1417 -1100 / -1100 Medical Necessity - Tobacco Use Smoking Status: Never smoker Assessment/Plan S/P Stable check. chronic iron deficiency anemia, Stable. Third deg laceration Stool softeners prn. RX sent. D/C home today. Discussed and declines LARC RTO in 6wk for pp check, prn sooner.
== END 2018-08-01 13:40 | disposition home or self-care (01) | DRG 768 ==
LOC: WPOUT 12:02
PROVIDERS: Admitting Provider Obstetrics & Gynecology; Referring Provider Obstetrics & Gynecology; Visit Provider Obstetrics & Gynecology
DX: O42.02 Full-term premature rupture of membranes, onset of labor within 24 hours of rupture (principal); Z37.0 Single live birth; O70.20 Third degree perineal laceration during delivery, unspecified; O99.613 Diseases of the digestive system complicating pregnancy, third trimester; K21.9 Gastro-esophageal reflux disease without esophagitis; O99.013 Anemia complicating pregnancy, third trimester; O69.2XX0 Labor and delivery complicated by other cord entanglement, with compression, not applicable or unspecified; Z3A.38 38 weeks gestation of pregnancy
CPT/HCPCS: 59025; 59050; 84112; 85027; 85461; 86850; 86900; 90384; 99218; J7120; G0378; J2790

== ENCOUNTER → 2018-09-05 13:40 | Outpatient (CLI) | payer OTHER, SELFPAY ==
[2018-09-05 18:07] LABS: hCG Titer Quant., Serum < 1 mIU/mL (<9 non-preg)
[2018-09-05 19:21] LABS: Progesterone Level 0.09 ng/mL (See Comment)
== END ==
PROVIDERS: Visit Provider Obstetrics & Gynecology
DX: Z30.014 Encounter for initial prescription of intrauterine contraceptive device (principal)
CPT/HCPCS: 36415; 84144; 84702

== ENCOUNTER → 2018-09-09 16:21 | Outpatient (CLI) | payer OTHER, SELFPAY ==
[2018-09-09 19:42] LABS: Chlamydia Trachomatis by PCR Negative (Negative); Neisserai gonorrhoeae by PCR Negative (Negative); Probe Check PASS; Sample Adequacy Control PASS; Specimen Processing Control PASS
--- OUTSIDE RECORDS SUMMARY | 2018-11-14 07:46 | XMS RPT_ITS ---
:1985 Author Organization OHIP Support Name Relationship Address Phone LESLIJOHN Unavailable [address] + [place] [address] ORRCISCH Unavailable [address] + [place] [address] JOHN BALLESTEROS Unavailable [address] + [place] [address] ORRCISCH Unavailable [address] + [place] [address] JOHN BALLESTEROS Unavailable [address] + [place] [address] ORRCISCH Unavailable [address] + [place] [address] JOHN BALLESTEROS Unavailable [address] + [place] [address] ORRCISCH Unavailable [address] + [place] [address] JOHN BALLESTEROS Unavailable [address] + [place] [address] ORRCISCH Unavailable [address] + [place] [address] JOHN BALLESTEROS Unavailable [address] + [place] [address] ORRCISCH Unavailable [address] + [place] [address] JOHN BALLESTEROS Unavailable [address] + [place] [address] ORRCISCH Unavailable [address] + [place] [address] JOHN BALLESTEROS Unavailable [address] + [place] [address] ORRCISCH Unavailable [address] + [place] [address] JOHN BALLESTEROS Unavailable [address] + [place] [address] ORRCISCH Unavailable [address] + [place] [address] JHON BALLESTEROS Unavailable [address] + [place] [address] ORRCISCH Unavailable [address] + [place] [address] JOHN BALLESTEROS Unavailable [address] + [place] [address] ORRCISCH Unavailable [address] + [place] [address] JOHN BALLESTEROS Unavailable [address] + [place] [address] ORRCISCH Unavailable [address] + [place] [address] JOHN BALLESTEROS Unavailable [address] + [place] [address] ORRCISCH Unavailable [address] + [place] [address] Care Team Providers Name Role Phone Brenda Rachel Attending Unavailable Primay Care Physicia, No Primary Care Unavailable Brenda Rachel Attending Unavailable Primay Care Physicia, No Primary Care Unavailable Brenda Rachel Attending Unavailable Brenda Rachel Attending Unavailable Janee Farley Attending Unavailable Brenda Rachel Attending Unavailable Ulises Dale Primary Care Unavailable Brenda Rachel Attending Unavailable Brenda Rachel Referring Unavailable Ulises Dale Primary Care Unavailable Brenda Rachel Attending Unavailable Brenda Rachel Attending Unavailable Brenda Rachel Attending Unavailable Brenda Rachel Attending Unavailable Brenda Rachel Admitting Unavailable Brenda Rachel Attending Unavailable Brenda Rachel Referring Unavailable Primay Care Physicia, No Primary Care Unavailable Pipo oSfia Attending Unavailable Pipo Sofia Referring Unavailable Primay Care Physicia, No Primary Care Unavailable Pipo Sofia Admitting Unavailable PROBLEMS PROBLEMS DATE TYPE CONDITION / CODE ATTENDING STATUS SOURCE 09/09/2018 Unknown Z11.3 - Encounter Brenda Rachel Active Miah for screening for Community infections with a Hospital predominantly Repository sexual mode of transmission / Z11.3(ICD-10) 09/05/2018 Unknown Z30.014 - Encounter Brenda Rachel Active Miah for initial Community prescription of Hospital intrauterine Repository contraceptive device / Z30.014(ICD-10) 07/18/2018 Unknown Z36.85 - Encounter Brenda Rachel Active Miah for Community screening for Hospital Streptococcus B / Repository Z36.85(ICD-10) 06/14/2018 Unknown Z34.83 - Encounter Brenda Rachel Active Miah for supervision of Community other normal Hospital , third Repository trimester / Z34.83(ICD-10) 06/14/2018 Unknown R80.9 - Brenda Rachel Proteinuria, Community unspecified / Hospital R80.9(ICD-10) Repository 05/16/2018 Unknown Z34.82 - Encounter Travis Farley [place] for supervision of Summer Community other normal Hospital , second Repository trimester / Z34.82(ICD-10) 01/04/2018 Unknown Z34.81 - Encounter Brenda Rachel Active Miah for supervision of Community other normal Hospital , first Repository trimester / Z34.81(ICD-10) PROCEDURES PROCEDURES No Procedure Records FoundRESULTS RESULTS CT/NG [facility] BY PCR Collected: 09/09/2018 Status: F Source: MIAH 11:45 AM [facility] REPOSITORY TYPE CODE TESTS RESULT OUT OF RANGE REFERENCE UNITS LAB L8200.2100 Negative Normal Chlam Negative Trac PCR LAB L8200.2200 Negative Normal NG by Negative PCR Performed By: #### L8200.1999 #### Miah [facility] [address] [place], [address] HCG TITER QUANT., Collected: 09/05/2018 Status: F Source: MIAH SERUM 1:44 PM [facility] REPOSITORY TYPE CODE TESTS RESULT OUT OF RANGE REFERENCE UNITS LAB L700.8000 <9 non-preg mIU/mL Normal HCG < 1 QUANT. Performed By: #### L700.8000 #### [facility] [address] [place], [address] PROGESTERONE LEVEL Collected: 09/05/2018 Status: F Source: MIAH 1:44 PM [facility] REPOSITORY TYPE CODE TESTS RESULT OUT OF REFERENCE UNITS RANGE LAB L509.4001 See Comment ng/mL Progesterone Normal 0.09 Result Comment: Progesterone Reference Table: UNITS Female: Follicular 0.15 - 1.40 ng/mL Luteal 3.34 - 25.56 ng/mL Mid-luteal 4.44 - 28.03 ng/mL Postmenopausal 0.0 - 0.73 ng/mL : 1st Trimester 11.22 - 90.00 ng/mL 2nd Trimester 25.55 - 89.40 ng/mL 3rd Trimester 48.40 -422.50 ng/mL Performed By: #### L509.4001 #### [facility] [address] [place], [address] RH NEGATIVE MOM Collected: 07/31/2018 Status: F Source: MIAH WORKUP 3:52 AM [facility] REPOSITORY Order Comment: Order Date: 07/31/18 Baby's Full Name Baby Girl Ketler Baby's Bracelet # [id number] Baby's MR # [id number] TYPE CODE TESTS RESULT OUT OF RANGE REFERENCE UNITS LAB B101.0425 A Normal MOM'S ABO NEGATIVE RH LAB B101.0450 Normal MOM'S ABS NEGATIVE LAB B101.0500 NEGATIVE Normal NEGATIVE SCREEN LAB B101.0950 A Normal BABY'S POSITIVE ABO RH LAB B101.1000 NEGATIVE Normal BABY'S NEGATIVE CHARLES Performed By: #### B101.0300 #### [facility] [address] [place], [address] RHOGAM Collected: 07/31/2018 Status: F Source: MIAH 12:00 AM [facility] REPOSITORY TYPE CODE TESTS RESULT OUT OF REFERENCE UNITS RANGE LAB U100.2500 [id number] TRANSFUSED PRODUCT: Rho(D) Immune Globulin RhoGam COUNT: 1 Performed By: #### U100.2500 #### [facility] - refer to report for specific site DISCHARGE INSTRUCTION Observed: 07/30/2018 Status: F Source: MIAH 9:23 PM [facility] REPOSITORY [facility] Medical Records Department [address] [place] [address] Instructions for Home/Discharge Instructions 07/30/182122 MR#: [id number] Acct: [id number] Name: DEIRDRE BALLESTEROS Rep #: [id number] : 1985 33 From: Pipo Sofia MD [...] Follow Up With: Brenda Rachel MD - [phone] When: Call to make an appointment with [...] OPERATIVE REPORT Observed: 07/30/2018 Status: F Source: [place] 9:22 PM [facility] REPOSITORY [facility] Medical Records Department [address] [place] [address] Operative Report 07/30/182118 MR#: [id number] Acct: [id number] Name: DEIRDRE BALLESTEROS Rep #: [id number] : 1985 33 From: Pipo Sofia MD PCP: Care Physician, No Primary Status: ADM IN Location: [place] [address] Vaginal Delivery Maternal Presentation: Active Labor, Spontaneous [...] BLOOD CNT Collected: 07/30/2018 Status: F Source: MIAH NO DIFF 12:40 PM [facility] REPOSITORY TYPE CODE TESTS RESULT OUT OF [...] MPV 9.8 Performed By: #### L100.0500 #### [facility] [address] [place], [place], [address] TYPE AND SCREEN Collected: 07/30/2018 Status: F Source: MIAH 12:40 PM [facility] REPOSITORY Order Comment: Reason for Type AND Screen/Red Cells: ROUTINE TYPE CODE TESTS RESULT OUT OF RANGE REFERENCE UNITS LAB B10.0800 A Normal BLOOD TYPE GEL NEGATIVE LAB B100.4000 Normal Antibody NEGATIVE Screen Performed By: #### B101.7450 #### [facility] [address] [place], [address] (ROM) RUPTURE OF Collected: 07/30/2018 Status: F Source: MIAH MEMBRANES 11:40 AM [facility] REPOSITORY TYPE CODE TESTS RESULT OUT OF REFERENCE UNITS RANGE LAB L205.1310 Negative High ROM POSITIVE Result Comment: Amniotic fluid present indicates rupture of Membranes. RESULTS CALLED TO [facility] 07/30/18 Javid Andrews. REPORT READ BACK BY SAME . Performed By: #### L205.1000 #### [facility] [address] [place], [address] Observed: 07/18/2018 Status: F Source: [place] CULTURE, GROUP B 3:30 PM [facility] STREPTOCOCCUS REPOSITORY Comments: VAGINAL/RECTAL ISSA Culture ORGANISM 1: Streptococcus agalactiae (B) Amount Growth Growth Streptococcus agalactiae (B): REACTION Ampicillin $ <=0.25 S Clindamycin $$ >=1 R Inducable Clindamycin Resistan - Linezolid $$$$ <=2 S Vancomycin $ 0.5 S (NF) indicates non-formulary drug at [facility]. Approval by Infectious Disease Specialist required before non-formulary drugs may be ordered and/or dispensed. * CLSI guidelines does not recommend testing of cephalosporins. This interpretation is deduced from Beta-lactam/penicillin results. Performed By: #### M100.1800 #### [facility] [address] [place], [place], [address] PROTEIN, URINE 24HR Collected: 06/14/2018 Status: F Source: MIAH 3:45 PM [facility] REPOSITORY TYPE CODE TESTS RESULT OUT OF RANGE REFERENCE UNITS LAB L501.1850 24.0 HOURS Normal UR COLLECT 24.0 TIME LAB L501.1875 mL Normal UR TOTAL 1600 VOLUME LAB L501.1900 <11.9 mg/dL High URINE PROTEIN 22.2 LAB L501.1925 <150 MG/24HR mg/24HR High 24hr UR 355.2 PROTEIN Performed By: #### L500.9000 #### [facility] [address] [place], [place], [address] CBC-COMPLETE BLOOD CNT Collected: 06/13/2018 Status: F Source: [place] NO DIFF 4:35 PM [facility] REPOSITORY TYPE CODE TESTS RESULT OUT OF [...] MPV 9.4 Performed By: #### L100.0500 #### [facility] [address] [facility] [place], [place], [address] PROTHROMBIN TIME W/INR Collected: 06/13/2018 Status: F Source: [place] 4:35 PM [facility] REPOSITORY TYPE CODE TESTS RESULT OUT OF RANGE REFERENCE UNITS LAB L300.4150 11.7-14.9 SECONDS Normal PROTIME 13.5 LAB L300.4200 Normal INR 1.0 Performed By: #### L300.3900, L300.4310 #### [facility] [address] [facility] [place], [place], [address] PARTIAL THROMBOPLAST Collected: 06/13/2018 Status: F Source: [place] TIME 4:35 PM [facility] REPOSITORY TYPE CODE TESTS RESULT OUT OF RANGE REFERENCE UNITS LAB L300.4310 24.1-36.2 Seconds Normal PTT 25.8 Performed By: #### L300.3900, L300.4310 #### [facility] [address] [facility] [place], [place], [address] SERUM CREATININE AND Collected: 06/13/2018 Status: F Source: [place] GFR 4:35 PM [facility] REPOSITORY TYPE CODE TESTS RESULT OUT OF [...] By: #### L501.1105, L501.1400, L501.4100, L501.4405 #### [facility] [address] [place], [address] URIC ACID Collected: 06/13/2018 Status: F Source: [place] 4:35 PM [facility] REPOSITORY TYPE CODE TESTS RESULT OUT OF RANGE REFERENCE UNITS LAB L501.1400 2.6-6.0 mg/dL Normal URIC 3.1 Result Comment: The drugs N-Acetylcysteine and Metamizole may falsely depress this assay. Performed By: #### L501.1105, L501.1400, L501.4100, L501.4405 #### [facility] [address] [place], [address] AST(SGOT) Collected: 06/13/2018 Status: F Source: [place] 4:35 PM [facility] REPOSITORY TYPE CODE TESTS RESULT OUT OF RANGE REFERENCE UNITS LAB L501.4100 15-37 U/L Normal AST 17 Performed By: #### L501.1105, L501.1400, L501.4100, L501.4405 #### [facility] [address] [place], [address] ALANINE AMINOTRANSFERAS Collected: 06/13/2018 Status: F Source: [place] (SGPT) 4:35 PM [facility] REPOSITORY TYPE CODE TESTS RESULT OUT OF RANGE REFERENCE UNITS LAB L501.4405 13-56 U/L Normal ALT 17 Performed By: #### L501.1105, L501.1400, L501.4100, L501.4405 #### [facility] [address] [place], [address] Observed: 06/06/2018 Status: F Source: MIAH CULTURE, URINE 4:30 PM [facility] REPOSITORY Urine Culture ORGANISM 1: Mixed Gram Positive Organisms [place] Count 25,000-50,000 MIX CULTURE Mixed contaminants. Submit a new specimen if indicated. Performed By: #### M100.0650 #### [facility] [address] [place], [address] GESTATIONAL GTT 3HR Collected: 05/23/2018 Status: F Source: MIAH 100G 10:11 AM [facility] REPOSITORY Order Comment: Is Patient Fasting? Y [...] 3HR 127 Performed By: #### L500.4710 #### [facility] [address] [place], [place], [address] CBC-COMPLETE BLOOD CNT Collected: 05/16/2018 Status: F Source: MIA[place] NO DIFF 4:21 PM [facility] REPOSITORY TYPE CODE TESTS RESULT OUT OF [...] MPV 9.5 Performed By: #### L100.0500 #### [facility] [address] [facility] [place], [address] GLUCOSE CHALLENGE GEST Collected: 05/16/2018 Status: F Source: MIAH 1H 50G 4:21 PM [facility] REPOSITORY TYPE CODE TESTS RESULT OUT OF RANGE REFERENCE UNITS LAB L501.0250 70-140 mg/dL High GLU GEST 152 50g 1H Performed By: #### L501.0250 #### [facility] [address] [place], [address] ANTIBODY SCREEN Collected: 05/16/2018 Status: F Source: [place] 4:21 PM [facility] REPOSITORY TYPE CODE TESTS RESULT OUT OF RANGE REFERENCE UNITS LAB B100.4000 Normal Antibody NEGATIVE Screen Performed By: #### B100.4000 #### [facility] [address] [place], [address] CBC W/DIFF, AUTOMATED Collected: 01/04/2018 Status: F Source: MIAH 4:31 PM [facility] REPOSITORY TYPE CODE TESTS RESULT OUT OF [...] Lymph 1.95 Performed By: #### L100.0100 #### [facility] [address] [place], [place], [address] URINALYSIS, ROUTINE Collected: 01/04/2018 Status: F Source: [place] (DIPSTICK) 4:31 PM [facility] REPOSITORY Order Comment: How was Urine Obtained? [...] ESTERASE 500 Performed By: #### L400.2010 #### [facility] [address] [place], [place], [address] THYROID STIM HORMONE Collected: 01/04/2018 Status: F Source: [place] (TSH) 4:31 PM [facility] REPOSITORY TYPE CODE TESTS RESULT OUT OF RANGE REFERENCE UNITS LAB L501.9520 0.358-3.74 uIU/mL Normal TSH 2.08 Performed By: #### L501.9520 #### [facility] [address] [facility] [place], [place], [address] T AND S-NO Collected: 01/04/2018 Status: F Source: MIAH CHARGE W/PNP 4:31 PM [facility] REPOSITORY Order Comment: Reason for Type AND Screen/Red Cells: Surgery? N TYPE CODE TESTS RESULT OUT OF RANGE REFERENCE UNITS LAB B10.0800 A Normal BLOOD NEGATIVE TYPE GEL LAB B100.4050 Normal Ab SCREEN NEGATIVE GEL Performed By: #### B100.7550 #### [facility] [facility] [place], [place], [address] RUBELLA IGG Collected: 01/04/2018 Status: F Source: MIAH 4:31 PM [facility] REPOSITORY TYPE CODE TESTS RESULT OUT OF RANGE REFERENCE UNITS LAB L509.4000 IU/mL Normal Rubella IgG 146.2 Result Comment: Antibody results Interpretation of Immune Status < 5 IU/ml Presumed Non-immune 5 - < 10 IU/ml Equivocal > or = 10 IU/ml Presumed Immune Performed By: #### L509.4000, L3890.6005 #### [facility] [address] [place], [place], [address] HIV - [facility] Collected: 01/04/2018 Status: F Source: MIA[place] 4:31 PM [facility] REPOSITORY TYPE CODE TESTS RESULT OUT OF RANGE REFERENCE UNITS LAB L3890.6005 Nonreactive Normal HIV - [facility] Non-Reactive Performed By: #### L509.4000, L3890.6005 #### [facility] [address] [place], [address] HEPATITIS B SURFACE Collected: 01/04/2018 Status: F Source: MIAH AG 4:31 PM [facility] REPOSITORY TYPE CODE TESTS RESULT OUT OF RANGE REFERENCE UNITS LAB L3100.0400 Negative Normal HB Negative SURF AG Result Comment: Performed at: [address] [id number] [employer] Sales Representative: Kartik Avila PhD, Phone: [phone] Performed By: #### L3100.0390, L3100.0625 #### [facility] (refer to report for specific site) refer to report for address and phone number HEPATITIS C ANTIBODIES Collected: 01/04/2018 Status: F Source: [place] 4:31 PM [facility] REPOSITORY TYPE CODE TESTS RESULT OUT OF RANGE REFERENCE UNITS LAB L3100.0650 0.0-0.9 s/co ratio Normal HEP C AB 0.1 Result Comment: Negative: < 0.8 Indeterminate: 0.8 - 0.9 Positive: > 0.9 The CDC recommends that a positive HCV antibody result be followed up with a HCV Nucleic Acid Amplification test (213312). Performed By: #### L3100.0390, L3100.0625 #### [facility] (refer to report for specific site) refer to report for address and phone number RPR Collected: 01/04/2018 Status: F Source: [place] 4:31 PM [facility] REPOSITORY TYPE CODE TESTS RESULT OUT OF REFERENCE UNITS RANGE LAB L700.5100 NONREACTIVE Normal RPR NONREACTIVE Performed By: #### L700.5100 #### [facility] [address] [place], [address] CT/NG [facility] BY PCR Collected: 12/21/2017 Status: F Source: [place] 2:15 PM [facility] REPOSITORY TYPE CODE TESTS RESULT OUT OF RANGE REFERENCE UNITS LAB L8200.2100 Negative Normal Chlam Negative Trac PCR LAB L8200.2200 Negative Normal NG by Negative PCR Performed By: #### L8200.2000 #### [facility] [address] [place], [address] ALLERGIES ALLERGIES DATE TYPE / CODE NAME / CODE REACTION SEVERITY SOURCE 07/30/2018 Drug Penicillins/ Hives Unknown [facility] Allergy/4160 [id number]([facility] [address](SNOMED XNORM) Repository CT) ENCOUNTERS ENCOUNTERS ADMIT/DISCHARGE ACCOUNT ADMITTING ENCOUNTER LOCATION SOURCE NUMBER CLASS 09/09/2018 [id number] Ambulatory [address] ing:LABSPEC Repository 09/05/2018 [id number] Ambulatory Viola Viola [address] [facility] ing:WOBLAB Repository 08/09/2018 [id number] [facility] Miah Viola 9 Brenda [facility] ing:WP Repository 07/30/2018/ [id number] Pipo Sofia Inpatient Viola Viola 8 8 Encounter [facility] ing:WPRoom: Repository [id number]: 1 07/18/2018 [id number] Ambulatory Miah Miah 4 [facility] ing:LABSPEC Repository 06/14/2018 [id number] Ambulatory Viola Viola 4 [facility] ing:LABSPEC Repository 06/13/2018 [id number] Ambulatory Viola Miah 2 [facility] ing:WOBLAB Repository 06/06/2018 [id number] Ambulatory Miah Miah 6 [facility] ing:LABSPEC Repository 05/23/2018 [id number] Ambulatory Miah Viola [address] [facility] ing:LAB Repository 05/20/2018 [id number] Ambulatory Viola Miah 3 [facility] ing:LAB.FUTUR Repository E 05/16/2018 [id number] Ambulatory Viola Miah [address] [facility] ing:WOBLAB Repository 01/04/2018 [id number] Ambulatory Miah Miah [address] [facility] ing:WOBLAB Repository 12/21/2017 [id number] Ambulatory Miah Miah 5 [facility] ing:LABSPEC Repository PAYERS PAYERS ENCOUNTER GUARANTOR PAYER SUBSCRIBER SOURCE 09/09/2018 DEIRDRE L Primary DEIRDRE L [place] [id number] Insurance:AULTCAREPol LESLIDOB: [facility] Number: [id number] Cent[facility] [id number] Repository [place] Date:4916-75-30[address]Lgc: [phone], [place] [phone] (IR) [address]WP: 09/09/2018 Secondary NOT GIVENUNK [place] Insurance:SELF PAY [facility] Number: Effective Repository Date:2018-09-09 09/05/2018 DEIRDRE L Primary DEIRDRE L Miah [id number] Insurance:AULTCAREPol KETLERDOB: [facility] icy Number: [id number] [id number] Repository [place] Date:2208-81-90[address] [address]Ict: [phone] [place], [place] [phone] () [phone]: 09/05/2018 Secondary NOT GIVENUNK Miah Insurance:SELF PAY [facility] Number: Effective Repository Date:2018-09-05 08/09/2018 DEIRDRE L Primary DEIRDRE L [place] [id number] Insurance:AULTCAREPol KETLERDOB: [facility] icy Number: [id number] Central Community Hospital [id number] Repository [place] Date:7969-71-38[address] [address]Dpz: [phone] [place], [place] [phone] () [address]IK: 08/09/2018 Secondary NOT GIVENUNK [place] Insurance:SELF PAY [facility] Number: Effective Repository Date:2018-07-28 07/30/2018 DEIRDRE L Primary DEIRDRE L [place] [id number] Insurance:AULTCAREPol KETLERDOB: [facility] icy Number: [id number] [facility] Community Hospital [id number] Repository [place] Date:3112-44-59[address] [address]Bzc: [phone] [place], [place] [phone] () [phone]: 07/30/2018 Secondary NOT GIVENUNK Miah Insurance:SELF PAY [facility] Number: Effective Repository Date:2018-07-30 07/18/2018 DEIRDRE L Primary DEIRDRE L [place] [id number] Insurance:AULTCAREPol KETLERDOB: [facility] icy Number: [id number] [facility] Community Hospital [id number] Repository [place] Date:9062-33-98[address] [address]Cqs: [phone] [place], [place] [phone] () [address]YS: 07/18/2018 Secondary NOT GIVENUNK [place] Insurance:SELF PAY [facility] Number: Effective Repository Date:2018-07-18 06/14/2018 DEIRDRE L Primary DEIRDRE L Miah [id number] Insurance:AULTCAREPol KETLERDOB: [facility] icy Number: [id number] Central Community Hospital [id number] Repository [place] Date:2021-41-31[address] [address]Xae: [phone], [place] [phone] () [address]FE: 06/14/2018 Secondary NOT GIVENUNK [place] Insurance:SELF PAY [facility] Number: Effective Repository Date:2018-06-14 06/13/2018 DEIRDRE L Primary DEIRDRE L Miah [id number] Insurance:AULTCAREPol KETLERDOB: [facility] ic Number: [id number] Central Community Hospital [id number] Repository [place] Date:2758-98-57[address] [address]Zpw: [phone], [place] [phone] () [phone]: 06/13/2018 Secondary NOT GIVENUNK [place] Insurance:SELF PAY [facility] Number: Effective Repository Date:2018-06-13 06/06/2018 DEIRDRE L Primary DEIRDRE L Vi[place] [id number] Insurance:AULTCAREPol KETLERDOB: [facility] icy Number: [id number] Central Community Hospital [id number] Repository [place] Date:5266-03-65[address] [address]Guy: [phone] [place], [place] [phone] () [address]OO: 06/06/2018 Secondary NOT GIVENUNK [place] Insurance:SELF PAY [facility] Number: Effective Repository Date:2018-06-06 05/23/2018 DEIRDRE L Primary DEIRDRE L [place] [id number] Insurance:AULTCAREPol KETLERDOB: [address] icy Number: [id number] [facility] [id number] Repository [place] Date:7331-56-30[address] [address]Nhb: [phone], [place] [phone] (HP) [address]YO: 05/23/2018 Secondary NOT GIVENUNK Miah Insurance:SELF PAY [facility] Number: Effective Repository Date:2018-05-19 05/20/2018 Deirdre [id number] Primary Deirdre KetlerDOB: Vi[place] [address] Insurance:AULTCAREPol [id number] icy Number: [place], [place] [id number] Repository [id number]: (330) Date:2463-85-83TR [phone] (HP) [address], [place] [address]UT: 05/20/2018 Secondary NOT GIVENUNK Viola Insurance:SELF PAY [facility] Number: Effective Repository Date:2018-05-20 05/16/2018 Deirdre [id number] Primary Deirdre KetlerDOB: [address]iah [address] Insurance:[employer]AREPol [id number] [facility] icy Number: [place], [place] [id number] Repository [address]Poz: (330) Date:2064-00-25RJ [phone] (HP) [address], [place] [address]EE: 05/16/2018 Secondary NOT GIVENUNK Miah Insurance:SELF PAY [facility] Number: Effective Repository Date:2018-05-16 01/04/2018 Deirdre [id number] Primary Deirdre KetlerDOB: Viola [address] Insurance:[employer]AREPol [id number] [facility] icy Number: [place] [id number] Repository [address]Mun: (330) Date:4618-21-69KT [phone] (HP) [address], [place] [address]QN: 01/04/2018 Secondary NOT GIVENUNK Viola Insurance:SELF PAY [facility] Number: Effective Repository Date:2018-01-04 12/21/2017 Deirdre [id number] Primary Deirdreryan DanielsCordeliaB: [facility] Insurance[facility]AREPol [id number]: [place], [place] [id number] Repository [address]: 330) Date:2773-40-74DU [phone] (PX) [address], [place] [address]IF: 12/21/2017 Secondary NOT GIVENUNK Viola Insurance:SELF PAY [facility] Number: Effective Repository Date:2017-12-21
== END ==
PROVIDERS: Visit Provider Obstetrics & Gynecology
DX: Z11.3 Encounter for screening for infections with a predominantly sexual mode of transmission (principal)
CPT/HCPCS: 87491; 87591

== ENCOUNTER → 2018-10-24 07:17 | Outpatient (CLI) | payer OTHER, SELFPAY ==
[2018-10-24 07:44] LABS: 24 Hour Urine Protein 92.2 mg/24HR (<150 MG/24HR); 24HR. UA Prot. Total Volume 425 mL; Urine Protein (24 Hour) 21.7 mg/dL (<11.9)
[2018-10-24 07:53] LABS: Creatinine, Serum 0.99 mg/dL (0.55-1.02); EST Glomerular Filtration Rate 68 mL/min (>60); Est Glom Filt Rate - Afr Amer 82 mL/min (>60)
[2018-10-24 08:11] LABS: Creat.Clear Total Volume 425 mL; Creatinine Clearance 86 ml/min (100-200); EST Glomerular Filtration Rate 68 mL/min (>60); Est Glom Filt Rate - Afr Amer 82 mL/min (>60)
== END ==
LOC: LAB.FUTURE 07:19 → LABSPEC 07:19
PROVIDERS: Referring Provider Internal Medicine Nephrology; Visit Provider Internal Medicine Nephrology
DX: R80.9 Proteinuria, unspecified (principal)
CPT/HCPCS: 36415; 82565; 82575; 84156